=== PATIENT | male | born 1995 | race Two or more races ===

== ENCOUNTER 2020-01-25 10:49 | Emergency (ER) | payer MEDICAID, OTHER ==
[~2020-01-25] VITALS: Ht 177.8 cm; Wt 77.1 kg
[2020-01-25 10:57] VITALS: BP 111/73
== END 2020-01-25 11:40 | disposition home or self-care (01) ==
LOC: ER 10:49
DX: S01.111D Laceration without foreign body of right eyelid and periocular area, subsequent encounter (principal); X58.XXXD Exposure to other specified factors, subsequent encounter